=== PATIENT | female | born 1985 | race Caucasian/White ===

== ENCOUNTER → 2017-07-30 | Outpatient (CLI) | payer BC ==
--- NOTE | 2017-07-30 16:39 | RADIOLOGY REPORT (SQ) ---
EXAM DESCRIPTION: CT PELVIS WITH COMPLETED DATE/TIME: 07/30/2017 4:09 pm REASON FOR STUDY: OVARIAN HYPERTROPHY COMPARISON: None. TECHNIQUE: CT scan of the pelvis performed with intravenous and oral contrast using helical scanning technique with dynamic intravenous contrast injection. Images reviewed with soft tissue and bone win dows. Reconstructed coronal and sagittal MPR images reviewed. Delayed images for evaluation of the ur inary system also acquired. All images stored on PACS. All CT scanners at this facility use dose modulation, iterative reconstruction, and/or weight based d osing when appropriate to reduce radiation dose to as low as reasonably achievable (ALARA). [facility]: Dose Right [facility]: CareDose [facility]: Dose Right [facility]: Teradose 4D [facility]: Element ID CONTRAST TYPE AND DOSE: contrast/concentration: Isovue 370.00 mg/ml; Total Contrast Delivered: 93.0 ml; Total Saline Delivered: 71.0 ml RENAL FUNCTION: Creatinine 0.7. RADIATION DOSE: CT Rad equipment meets quality standard of care and radiation dose reduction techniq ues were employed. CTDIvol: 14.4 - 16.6 mGy. DLP: 1020 mGy-cm.. LIMITATIONS: None. FINDINGS: PELVIC BONES: No acute fracture. No worrisome bone lesions. VISUALIZED SPINE: No acute findings. HIP(S): No acute fracture or dislocation. No worrisome bone lesions. PELVIC SOFT TISSUES: There is bilateral ovarian enlargement. Transverse measurement of the right ova ry is 3.8 x 4.6 cm and left ovary 3.6 x 3.6 cm. No other pelvic masses. No free fluid. EXTRAPELVIC SOFT TISSUES: No significant findings. OTHER: No other significant finding. IMPRESSION: BILATERAL OVARIAN ENLARGEMENT. NO OTHER SIGNIFICANT FINDINGS IN THE LOWER ABDOMEN OR PE LVIS. TECHNICAL DOCUMENTATION: JOB ID: [id number] Quality ID # [id number]: Final reports with documentation of one or more dose reduction techniques (e.g., Au tomated exposure control, adjustment of the mA and/or kV according to patient size, use of iterative reconstruction technique) 2010 [employer]- All Rights Reserved Reading location - IP/workstation name: [email or web address]
== END ==
LOC: RAD 15:34
PROVIDERS: ATTEND Obstetrics & Gynecology
DX: N83.8 Other noninflammatory disorders of ovary, fallopian tube and broad ligament (principal)
CPT/HCPCS: 72193; 82565

== ENCOUNTER → 2017-10-07 | Outpatient (CLI) | payer BC ==
--- NOTE | 2017-10-07 14:09 | RADIOLOGY REPORT (SQ) ---
EXAM DESCRIPTION: CT ABD/PELVIS WITH IV ORAL COMPLETED DATE/TIME: 10/07/2017 1:37 pm REASON FOR STUDY: N20.0 CALCULUS OF KIDNEY R31.0 GROSS HEMATURIA N20.0 CALCULUS OF KIDNEY R31.0 GR OSS HEMATURIA COMPARISON: 01/13/2016 TECHNIQUE: CT scan of the abdomen and pelvis performed using helical scanning technique with dynamic intravenous contrast injection. No oral contrast. Images reviewed with lung, soft tissue, and bone windows. Reconstructed coronal and sagittal MPR images reviewed. Delayed images for evaluation of the urinary system also acquired. All images stored on PACS. All CT scanners at this facility use dose modulation, iterative reconstruction, and/or weight based d osing when appropriate to reduce radiation dose to as low as reasonably achievable (ALARA). [facility]: Dose Right [facility]: CareDose [facility]: Dose Right [facility]: Teradose 4D [facility]: Viewabill CONTRAST TYPE AND DOSE: 94 cc Omnipaque 350- low osmolar. RENAL FUNCTION: GFR > 60. RADIATION DOSE: . LIMITATIONS: None. FINDINGS: LOWER CHEST: No significant findings. No nodules or infiltrates. LIVER: Normal size. No masses. No dilated ducts. SPLEEN: Normal size. No focal lesions. PANCREAS: No masses. No significant calcifications. No adjacent inflammation or peripancreatic fluid collections. Pancreatic duct not dilated. GALLBLADDER: No identified stones by CT criteria. No inflammatory changes to suggest cholecystitis. ADRENAL GLANDS: No significant masses or asymmetry. RIGHT KIDNEY AND URETER: No solid masses. No significant calcifications. No hydronephrosis or hyd roureter. LEFT KIDNEY AND URETER: No solid masses. 1 mm stone lower pole. No hydronephrosis or hydroureter. AORTA AND VESSELS: No aneurysm. No dissection. Renal arteries, SMA, celiac without stenosis. RETROPERITONEUM: No retroperitoneal adenopathy, hemorrhage or masses. BOWEL AND PERITONEAL CAVITY: No masses or inflammatory changes. No free fluid or peritoneal masses. APPENDIX: Normal. PELVIS: Enlarged ovaries which is a chronic finding. 3 cm cyst left ovary. No pelvic adenopathy. N ondependent gas in the urinary bladder, presumably related to recent catheterization. ABDOMINAL WALL: Small umbilical hernia. BONES: No significant or acute findings. OTHER: No other significant finding. IMPRESSION: 1. Interval passage of right renal calculus. 1 mm calculus left kidney. 2. Chronic enlarged ovaries. TECHNICAL DOCUMENTATION: JOB ID: [id number] Quality ID # [id number]: Final reports with documentation of one or more dose reduction techniques (e.g., Au tomated exposure control, adjustment of the mA and/or kV according to patient size, use of iterative reconstruction technique) 2010 [employer]- All Rights Reserved Reading location - IP/workstation name: [email or web address]
== END ==
LOC: RAD 13:39
PROVIDERS: ATTEND Urology
DX: N20.0 Calculus of kidney (principal); R31.0 Gross hematuria
CPT/HCPCS: 74177; 82565

== ENCOUNTER 2017-10-08 12:39 | Emergency (ER) | payer BC ==
[2017-10-08 15:02] LABS: APPEARANCE,URINE CLEAR; BILIRUBIN,URINE NEGATIVE (NEGATIVE); COLOR,URINE YELLOW; GLUCOSE, URINE NEGATIVE (NEGATIVE); KETONES,URINE NEGATIVE (NEGATIVE); LEUKOCYTE ESTERASE,URINE NEGATIVE (NEGATIVE); NITRITE,URINE NEGATIVE (NEGATIVE); PROTEIN,URINE NEGATIVE (NEGATIVE); URINE SPECIFIC GRAVITY 1.005; UROBILINOGEN,URINE NEGATIVE mg/dL (<2.0)
--- NOTE | 2017-10-08 15:27 | ER Document Report ---
ED Medical Screen (RME) - General Chief Complaint: Abdominal Pain Stated Complaint: GENERALIZED PAIN Time Seen by Provider: 10/08/17 13:07 TRAVEL OUTSIDE OF THE [place] IN LAST 30 DAYS: No - HPI Patient complains to provider of: Referred by Onset: Other - This 32-year-old female presents for evaluation of an elevated white blood cell count found by her urologist in follow-up of a kidney stone. She notes that she was previously diagnosed with a nephrolithiasis along the right side which she has since stopped feeling, she has been using normal medications at home to help with her symptoms and is otherwise feeling okay with occasional back pain. She was contacted by her urologist who noted that she had an elevated white blood cell count though her urinalysis did not grow out positive culture after 24 hours. She denies any nausea, diarrhea, constipation, shortness of breath chest pain lightheadedness focal numbness or weakness rashes or chills. - Related Data Allergies/Adverse Reactions: No Known Allergies Allergy (Unverified 01/11/14 13:53) Past Medical History - General Information source: Patient - Social History Chew tobacco use (# tins/day): No Frequency of alcohol use: None Drug Abuse: None Renal/ Medical History: Reports: Hx Kidney Stones. Denies: Hx Peritoneal Dialysis Review of Systems - Review of Systems -: Yes All other systems reviewed and negative Physical Exam - Vital signs Vitals: Temp Pulse Resp BP 97.6 F 110 H 16 138/98 H 10/08/17 13:06 10/08/17 13:06 10/08/17 13:06 10/08/17 13:06 - General General appearance: Appears well In distress: None - HEENT Head: Normocephalic Eyes: Normal Conjunctiva: Normal - Respiratory Respiratory status: No respiratory distress Chest status: Nontender Breath sounds: Normal Chest palpation: Normal - Cardiovascular Rhythm: Regular Heart sounds: Normal auscultation Murmur: No - Abdominal Inspection: Normal Distension: No distension Tenderness: Nontender - Back Back: Normal - Extremities General upper extremity: Normal inspection General lower extremity: Normal inspection, Normal ROM - Neurological Neuro grossly intact: Yes Cognition: Normal Orientation: AAOx4 - Psychological Associated symptoms: Normal affect Course - Re-evaluation Re-evalutation: 10/08/17 20:53 This 32-year-old female presents for evaluation of leukocytosis in the setting of a previous nephrolithiasis. On examination she is well-appearing, in no obvious distress without systemic signs of infection otherwise. She did have a urinalysis through her urologist which sounds like it was nondiagnostic. On reevaluation of the patient's CT from previously it looks like she has passed her kidney stone, given that she is well appearing, has passed her kidney stone, and has a negative urinalysis previously will obtain urinalysis and reassess this patient she is able to tolerate p.o. Urinalysis demonstrates hematuria without any obvious infection. Given that she had a stand-alone leukocytosis without any other symptoms do not believe there is any indication for further imaging at this time or workup. This is unlikely brand representative of an infectious process at this time was likely reactive, will plan for culture the urine and reassessment. Did give patient a prescription for ciprofloxacin in case of any worsening fevers or chills she should start taking it as directed. She is in agreement with this plan at this time will follow up with her urologist as previously scheduled. She was ambulatory well-appearing with a benign abdominal examination at the time of discharge. - Vital Signs Vital signs: Temp Pulse Resp BP Pulse Ox 98.4 F 84 14 110/72 100 10/08/17 15:33 10/08/17 15:33 10/08/17 15:33 10/08/17 15:33 10/08/17 15:33 - Laboratory Laboratory results interpreted by me: 10/08/17 13:35 Urine Blood LARGE H Doctor's Discharge - Discharge Clinical Impression: Hematuria Leukocytosis Qualifiers: Leukocytosis type: unspecified Qualified Code(s): D72.829 - Elevated white blood cell count, unspecified Condition: Good Disposition: HOME, SELF-CARE Instructions: Hematuria ([facility]) Additional Instructions: You were seen in the emergency department for your elevated white blood cell count and blood in her urine. Evaluation including a physical exam, urine test. There is blood in your urine, does not look like there is an obvious infection in your urine. At this time I do not believe he would benefit from an ultrasound of her pelvis , will give you a prescription for an antibiotic if he begins to have fevers at home of greater than 101 please start taking this antibiotic until you are seen again by healthcare provider. If you begin to have worsening pain diarrhea constipation or inability to eat or drink please return to the emergency room as it may be a more serious condition. Prescriptions: Ciprofloxacin HCl [Cipro 500 mg Tablet] 500 mg PO BID #10 tablet Hydrocodone/Acetaminophen [Campus 5-325 mg Tablet] 1 tab PO Q8H PRN #10 tablet PRN Reason: For Pain Scale 4-5 Referrals: RICHARD RUIZ [NO LOCAL MD] - Follow up as needed
[2017-10-08 15:34] VITALS: BP 110/72
== END 2017-10-08 15:35 | disposition home or self-care (01) ==
LOC: ER 12:39
DX: D72.829 Elevated white blood cell count, unspecified (principal); R31.9 Hematuria, unspecified; M54.9 Dorsalgia, unspecified
CPT/HCPCS: 81001; 81025; 87086; 99284